=== PATIENT | male | born 1980 | race Caucasian/White ===

== ENCOUNTER 2016-07-18 20:07 | Emergency (ER) | payer OTHER ==
[~2016-07-18] VITALS: Ht 177.8 cm; Wt 139.0 kg
[~2016-07-18 20:07] MED LIST: CLIN1CAP5 PO; IBUP800T23 PO
[2016-07-18 20:45] VITALS: BP 145/94; PULSE 83; RESP 18; TEMP 98.6; O2SAT 97
--- NOTE | 2016-07-18 21:25 | PD ---
HPI Chief Complaint: Injury Time Seen by Provider: 21:24 Travel History International Travel<30 days: No Contact w/Intl Traveler<30days: No Traveled to known affect area: No History of Present Illness HPI 36-year-old male presents to ED for evaluation of 10/10 right knee pain. Onset after climbing down a ladder, missed the last step, falling approximately a foot. Patient states that the knee cold towards the medial side and he heard a pop and a snap. He has not been able to ambulating since the accident. He endorses distant previous injury to the knee. He denies numbness, tingling of the foot. States he is unable to assess for weakness or limitations to range of motion secondary to pain. He denies chronic health problems, takes no daily medications. NKDA. PFSH Past Medical History Medical History: Denies Significant Hx Diminished Hearing: No Immunizations Current: Yes Tetanus Vaccination: < 5 Years Influenza Vaccination: No Social History Alcohol Use: No Tobacco Use: No (QUIT 10 YEARS AGO) Substance Use: Yes (THC) Allergies-Medications (Allergen,Severity, Reaction): Coded Allergies: No Known Allergies (Verified , 05/02/16) Reported Meds & Prescriptions Reported Meds & Active Scripts Active Lortab (Hydrocodone-Acetaminophen) 5-325 Mg Tab 1 Tab PO Q6H PRN Ibuprofen 800 Mg Tab 800 Mg PO Q8H PRN Ibuprofen 800 Mg Tab 800 Mg PO Q6HR PRN Clindamycin (Clindamycin HCl) 150 Mg Cap 300 Mg PO Q8HR 7 Days Review of Systems Except as stated in HPI: all other systems reviewed are Neg Physical Exam Narrative GENERAL: Well-nourished, well-developed obese white male in no acute distress. SKIN: Warm and dry. HEAD: Normocephalic. EYES: No scleral icterus. No injection or drainage. NECK: Supple, trachea midline. No JVD or lymphadenopathy. CARDIOVASCULAR: Regular rate and rhythm without murmurs, gallops, or rubs. RESPIRATORY: Breath sounds equal bilaterally. No accessory muscle use. GASTROINTESTINAL: Abdomen soft, non-tender, nondistended. MUSCULOSKELETAL: No cyanosis, or edema. FOCUSED RIGHT LOWER EXTREMITY EXAM: 2+ radial pulse. The right knee is held in slight flexion. It is mildly edematous, tender to palpation along the entire medial aspect as well as the joint lines. No patellar balloting. Unable to flex to 90. Unable to perform anterior drawer or varus valgus stress testing secondary to pain. Sensation intact to light touch distally. Cap refill less than 2 seconds. BACK: Nontender without obvious deformity. No CVA tenderness. Data Data Last Documented VS Vital Signs Date Time Temp Pulse Resp B/P Pulse Ox O2 Delivery O2 Flow Rate FiO2 07/18/16 21:21 20 07/18/16 20:45 98.6 83 145/94 97 Orders Knee, Complete (4vws) (07/18/16 21:30) Ice/Cold Pack (07/18/16 21:30) Morphine Inj (Morphine Inj) (07/18/16 21:30) ^ Knee Immobilizer (07/18/16 22:25) Crutches (07/18/16 ) Mandatory Outpatient Referral (07/18/16 22:28) Acetamin-Hydrocod 325-7.5 Mg ([place] 7.5 (07/18/16 22:45) MDM Medical Decision Making Medical Screen Exam Complete: Yes Emergency Medical Condition: Yes Differential Diagnosis Sprain versus medial collateral ligament injury versus ACL injury versus tibial plateau fracture versus other Narrative Course 36-year-old male presents to ED for evaluation of 10/10 right knee pain. Onset after climbing down a ladder, missed the last step, falling approximately a foot. Patient states that the knee cold towards the medial side and he heard a pop and a snap. He has not been able to ambulating since the accident. He endorses distant previous injury to the knee. He denies numbness, tingling of the foot. States he is unable to assess for weakness or limitations to range of motion secondary to pain. Vitals reviewed. Physical exam reveals an obese white male in no acute distress. FOCUSED RIGHT LOWER EXTREMITY EXAM: 2+ radial pulse. The right knee is held in slight flexion. It is mildly edematous, tender to palpation along the entire medial aspect as well as the joint lines. No patellar balloting. Unable to flex to 90. Unable to perform anterior drawer or varus valgus stress testing secondary to pain. Sensation intact to light touch distally. Cap refill less than 2 seconds. Patient was administered 6 mg of morphine IM. Ice pack was applied. X-ray of the right knee is unremarkable per radiology read. Concern for ACL or MCL injury. Patient was placed in a knee immobilizer. On recheck he reports only mild improvement of his pain symptoms and was administered a 7.5 mg Lortab by mouth. She was provided a pair of crutches. Mandatory outpatient follow-up was placed with orthopedist. He is prescribed a short course of anti- inflammatories and narcotic pain medications. He is instructed to rest, ice, elevate the extremity, return to gentle toe-touch weightbearing as tolerated, follow up with the orthopedist as discussed. He indicated understanding of the instructions and was amenable to plan of care. Patient is stable and discharged home. Diagnosis Primary Impression: Right medial knee pain Referrals: Phillip Pagan MD Patient Instructions: General Instructions, Knee Immobilizer (ED), Knee Pain ( ED) Additional Instructions: Rest, ice, elevate the extremity. Apply ice no longer than 10-15 minutes per hour a few times a day. 800 mg ibuprofen up to 3 times a day as needed for pain. 5 mg Lortab as needed for pain greater than 6 on the scale. Toe-touch weightbearing as tolerated. Wear the knee immobilizer until reevaluated by the orthopedist. No weightbearing, running, jumping activities for the next few weeks. Follow up with the orthopedist this week as discussed. Return to the ED for any urgent or emergent medical condition. Med/Other Pt SpecificInfo: Prescription(s) given Scripts Hydrocodone-Acetaminophen (Lortab)5-325 Mg Tab1 Tab PO Q6H PRN (PAIN) #12 TAB Ref 0 Prov:Adonis Woody MD 07/18/16 Ibuprofen 800 Mg Shd000 Mg PO Q8H PRN (Pain/Inflammation) #20 TAB Ref 0 Prov:Adonis Woody MD 07/18/16 Disposition: 01 DISCHARGE HOME Condition: Stable Opal Ramos Jul 18, 2016 21:24
[2016-07-18] MEDS ORDERED: MORPHINE SULFATE 8 MG/ML INJ IM ONE (21:30)
--- NOTE | 2016-07-18 22:17 | RADHPO ---
EXAM DATE/TIME: 07/18/2016 21:40 [facility] COMPARISON: No previous studies available for comparison. INDICATIONS : Right knee pain from fall. MEDICAL HISTORY : Prior twisted right knee. SURGICAL HISTORY : None. ENCOUNTER: Initial ACUITY: 1 day PAIN SCORE: 8/10 LOCATION: lateral side of right knee. FINDINGS: No definite fractures, or dislocations are identified. No definite lytic or sclerotic lesion is seen . The joint spaces are well maintained. CONCLUSION: Unremarkable study. Nawaf Cooper MD on July 18, 2016 at 22:16 Board Certified Radiologist. This report was verified electronically.
[2016-07-18] MEDS ORDERED: IBUP800T23 PO (22:29)
[2016-07-18] MEDS ORDERED: HYDR-3533 PO ×2 (22:29→22:30)
[2016-07-18] MEDS ORDERED: ACETAMINOPHEN/HYDROcodone 325 MG/7.5 MG TAB PO ONE (22:45)
== END 2016-07-18 23:24 | disposition home or self-care (01) ==
LOC: PHED 20:07 → PHEFT 23:24
DX: M25.561 Pain in right knee (principal); W11.XXXA Fall on and from ladder, initial encounter; Y93.89 Activity, other specified; Y99.9 Unspecified external cause status
CPT/HCPCS: 73564; 96372; 99283; E0113; J2270